=== PATIENT | female | born 1985 | race Asian ===

== ENCOUNTER 2022-06-29 18:50 | Inpatient (IN) ==
[2022-06-29] MEDS ORDERED: Nalbuphine 10 MG/ML 1 ML VIAL IV PRN (19:32)
[2022-06-29] MEDS ORDERED: Promethazine INJ(RESTRICTED) 25 MG/ML 1 ml VIAL IV PRN (19:32)
[2022-06-29] MEDS ORDERED: Lactated Ringers 1000 ml BAG 1,000 ML IV ONE (19:32)
[2022-06-29] MEDS ORDERED: Buffered Lidocaine 1% SYRIN 1 ml INTRADERM ONE (19:32)
[2022-06-29 20:15] LABS: Urine Appearance Clear; Urine Bilirubin Negative (Negative); Urine Blood 1+ (Small) (Negative); Urine Color Yellow; Urine Glucose Negative (Negative); Urine Ketones Negative (Negative); Urine Nitrite Negative (Negative); Urine Protein Negative (Negative); Urine Urobilinogen 0.2 (Negative) (Negative)
[2022-06-29 20:19] LABS: Urine Bacteria 1+ (Absent); Urine Red Blood Cell Trace(0-2/hpf) (Absent); Urine Squamous Epithelial Cell Present (Absent); Urine White Blood Cell Trace(0-5/hpf) (Absent)
[2022-06-29 20:22] LABS: Urine Benzodiazepine Screen None Detected (None Detect); Urine Cannabinoids Screen None Detected (None Detect); Urine Opiates Screen None Detected (None Detect)
[2022-06-29 21:09] LABS: Hematocrit 36 % (35-47); Hemoglobin 12.6 g/dL (12.0-16.0); Mean Corpuscular HGB Conc 35 g/dL (31-36); Mean Corpuscular Hemoglobin 33 pg (27-31); Mean Corpuscular Volume 96 fL (80-97); Mean Platelet Volume 9.1 fL (7.4-10.4); Platelet Count 204 10^3/uL (150-450); Red Blood Count 3.79 10^6 /uL (3.70-4.87); Red Cell Distribution Width 15 % (10-15); White Blood Count 17.8 10^3/uL (3.5-10.8)
[2022-06-29 21:48] LABS: Albumin 3.5 g/dL (3.2-5.2); Albumin/Globulin Ratio 1.3 (1-3); Calcium 8.8 mg/dL (8.6-10.3); Globulin 2.8 g/dL (2-4); Potassium 4.2 mmol/L (3.5-5.0); Total Bilirubin 0.4 mg/dL (0.2-1.0); Total Protein 6.3 g/dL (6.4-8.9); Uric Acid 5.5 mg/dL (2.3-6.6); eGFR CKD-EPI 105.1 (>60)
[2022-06-29 22:05] LABS: HIV 4th Generation Nonreactive (Nonreactive)
[2022-06-29 22:07] LABS: ABS Basophils 0.2 10^3/ul (0-0.2); ABS Eosinophils 0.3 10^3/ul (0-0.6); ABS Lymphocytes 1.3 10^3/ul (1.0-4.8); ABS Nucleated RBC 0.1 10^3/ul; Eosinophil % 1.9 %; Lymphocyte % 7.6 %; Nucleated Red Blood Cells % 0.5
[2022-06-30] MEDS: Lactated Ringers 1000 ml BAG 1,000 ML IV SCH ×3 (03:15→17:43)
[2022-06-30] MEDS ORDERED: Oxytocin in LR 20,000 MILLI.UNIT/1,000 ML BAG IV SCH (09:15)
[2022-06-30] MEDS ORDERED: ceFAZolin 2 GM in NS PREMIX 2 GM/100 ML BAG IVPB ONE (16:00)
[2022-06-30] MEDS ORDERED: Azithromycin 500 mg/250 ml NS 500 MG/250 ML BAG IVPB ONE (16:01)
[2022-06-30] MEDS ORDERED: Sodium Citrate/Citric Acid LIQ 15 ML UDC ONE (16:09)
[2022-06-30] MEDS ORDERED: Morphine PF AMP (0.5MG/ML) 5 MG/10 ML AMP ONE (17:56)
[2022-06-30] MEDS ORDERED: Oxytocin 10 UNITS/ML 1 ML VIAL ONE ×2 (19:09)
[2022-06-30] MEDS ORDERED: Glycerin ADULT 2.4 gm SUPP PR PRN (19:30)
[2022-06-30] MEDS ORDERED: Dibucaine 1% OINT 28.35 GM TUBE PR PRN (19:30)
[2022-06-30] MEDS ORDERED: Witch Hazel PAD JAR TOPICAL PRN (19:30)
[2022-06-30 19:35] LABS: Urine Benzodiazepine Screen None Detected (None Detect); Urine Cannabinoids Screen None Detected (None Detect); Urine Opiates Screen None Detected (None Detect)
[2022-06-30] MEDS ORDERED: Lactated Ringers 1000 ml BAG 1,000 ML IV SCH (20:00)
[2022-07-01 07:15] LABS: ABS Eosinophils 0.1 10^3/ul (0-0.6); ABS Lymphocytes 0.8 10^3/ul (1.0-4.8); ABS Monocytes 0.8 10^3/ul (0-0.8); ABS Neutrophils 11.5 10^3/ul (1.5-7.7); Eosinophil % 1.1 %; Hematocrit 29 % (35-47); Hemoglobin 10.2 g/dL (12.0-16.0); Lymphocyte % 6.2 %; Mean Corpuscular HGB Conc 35 g/dL (31-36); Mean Corpuscular Hemoglobin 34 pg (27-31); Mean Corpuscular Volume 97 fL (80-97); Mean Platelet Volume 8.9 fL (7.4-10.4); Platelet Count 165 10^3/uL (150-450); Red Blood Count 2.99 10^6 /uL (3.70-4.87); Red Cell Distribution Width 14 % (10-15); White Blood Count 13.3 10^3/uL (3.5-10.8)
[2022-07-03 09:43] VITALS: BP 118/77
== END 2022-07-03 12:08 | disposition home or self-care (01) | DRG 788 ==
LOC: MCHOBOUT 18:50 → MCHOB 20:05
PROVIDERS: ADMIT Obstetrics & Gynecology; ATTEND Obstetrics & Gynecology